=== PATIENT | male | born 1960 | race Hispanic/Latino ===

== ENCOUNTER 2020-06-18 11:20 | Inpatient (IN) | payer OTHER, SELFPAY ==
[~2020-06-18] VITALS: Ht 170.2 cm; Wt 55.5 kg
[2020-06-18 12:15] LABS: BASOPHILS % (AUTO) 0.3 % (0.0-5.0); EOSINOPHILS % (AUTO) 0.3 % (0.0-8.0); HEMATOCRIT 37.7 % (42-54); LYMPHOCYTES % (AUTO) 10.7 % (21.0-51.0); MEAN CORPUSCULAR HEMOGLOBIN 28.8 pg (27.0-33.0); MEAN CORPUSCULAR VOLUME 84.9 fL (79-99); NEUTROPHILS % (AUTO) 78.9 % (40.0-77.0); PLATELET COUNT (AUTO) 407 K/uL (130-400); RED BLOOD CELL COUNT(AUTO) 4.44 MIL/uL (4.50-6.20); RED CELL DISTRIBUTION WIDTH 15.6 % (11.0-15.5); WHITE BLOOD COUNT (AUTO) 11.6 K/uL (4.8-10.8)
[2020-06-18 12:30] LABS: CREATININE 0.9 mg/dL (0.5-1.5); POTASSIUM 3.5 mmol/L (3.5-5.1)
[2020-06-18 12:35] LABS: ALBUMIN 2.7 g/dL (3.5-5.0); BILIRUBIN,TOTAL 1.1 mg/dL (0.2-1.0); TOTAL PROTEIN, SERUM 7.9 g/dL (6.0-8.3)
[2020-06-18] MEDS ORDERED: KETOROLAC TROMETHAMINE 15MG/ML ONE (14:00)
[2020-06-18] MEDS ORDERED: ACETAMINOPHEN EXTRA STRENGTH 500 MG TABLET ONE (14:00)
[2020-06-18] MEDS ORDERED: MORPHINE SULFATE 4 MG/1ML SYG ONE ×2 (14:57→17:50)
[2020-06-18] MEDS ORDERED: ONDANSETRON HCL 4 MG/2 ML VIAL ONE (14:57)
[2020-06-18] MEDS ORDERED: MORPHINE SULFATE 2 MG/ML 1ML SYG IVP PRN (15:30)
[2020-06-18] MEDS ORDERED: ONDANSETRON HCL 4 MG/2 ML VIAL IVP PRN (15:30)
[2020-06-18 15:36] LABS: APPEARANCE,URINE Clear (CLEAR); BILIRUBIN,URINE Small (NEGATIVE); COLOR,URINE Dark Yellow (YELLOW); GLUCOSE, URINE (UA) Negative (NEGATIVE); KETONES,URINE 15 mg/dL (NEGATIVE); LEUKOCYTE ESTERASE ,URINE Trace (NEGATIVE); NITRATE,URINE Negative (NEGATIVE); OCCULT BLOOD,URINE Negative (NEGATIVE); PROTEIN,URINE POS 1+ mg/dL (NEGATIVE)
[2020-06-18] MEDS: SODIUM CHLORIDE 0.9% 1000ML 1,000 ML IV SCH (15:45)
[2020-06-18] MEDS: CEFTRIAXONE SODIUM 1 GM IVP SCH (15:45)
[2020-06-18 15:49] LABS: BACTERIA,URINE Rare /HPF (None Seen); MUCUS,URINE Few LPF (None Seen); RBC,URINE 0-1 /HPF (0-1); SQUAMOUS EPITHELIAL CELL,UR Few /HPF (0-2); WBC,URINE 0-1 /HPF (0-1)
[2020-06-18] MEDS ORDERED: CEFTRIAXONE SODIUM 1 GM ONE (16:27)
[2020-06-18] MEDS: FAMOTIDINE/PF 20 MG/2 ML VIAL IV SCH (21:00)
[2020-06-18] MEDS ORDERED: FAMOTIDINE/PF 20 MG/2 ML VIAL IV ONE (21:03)
[2020-06-18 21:36] VITALS: BP 113/61
[2020-06-18] MEDS: MORPHINE SULFATE 4 MG/1ML SYG IV PRN (23:42)
[2020-06-19] VITALS: BP 117/56
[2020-06-19 04:00] VITALS: BP 121/57
--- NOTE | 2020-06-19 04:17 | NUR ---
PAIN Pt awake,sitting at the edge of the bed,warm packs applied to both legs for c/o of pain.He states Morphine didn't last.
--- NOTE | 2020-06-19 04:22 | NUR ---
SENIOR ACCOUNT REPRESENTATIVE Notified Audrey lynch Client Services Coordinator re pt.s c/o of pain Morphine not due yet.
[2020-06-19] MEDS ORDERED: HYDROMORPHONE HCL 0.5 MG/0.5 ML ML ONE (04:27)
[2020-06-19] MEDS ORDERED: HYDROMORPHONE HCL 0.5 MG/0.5 ML ML IVP ONE (04:30)
[2020-06-19] MEDS: SODIUM CHLORIDE 0.9% 1000ML 1,000 ML IV SCH (05:05)
[2020-06-19 08:07] VITALS: BP 109/58
[2020-06-19] MEDS: FAMOTIDINE/PF 20 MG/2 ML VIAL IV SCH ×2 (08:19→21:09)
[2020-06-19] MEDS: NICOTINE 21 MG/ 24 HR PATCH TD SCH (08:19)
[2020-06-19] MEDS ORDERED: ENOXAPARIN SODIUM 30 MG/0.3 ML SQ SCH (09:00)
[2020-06-19] MEDS: MORPHINE SULFATE 4 MG/1ML SYG IV PRN (10:52)
[2020-06-19] MEDS ORDERED: ACETAMINOPHEN-CODEINE 300/30MG TAB PO SCH (11:12)
--- NOTE | 2020-06-19 11:53 | NUR ---
DYSPHAGIA EVAL COMPLETED. -S/S OF ASPIRATION. RECOMMEND REGULAR TEXTURE, THIN LIQUIDS; PILLS WHOLE WITH LIQUIDS. Addendum: 06/19/20 at 1155 by LINDSEY TAVARES, [facility] Amended: Links added.
[2020-06-19 12:08] VITALS: BP 114/64
--- NOTE | 2020-06-19 12:40 | NUR ---
TRANSFER TO ROOM 422 REPORT GIVEN TO KIERRA OLIVARES , CONSULTS PENDING TO BE CALLED. DR. ARCINIEGA FOR MULTIPLE MASSES AND DR. GEORGES FOR INTRACTABLE BACK PAIN.
[2020-06-19] MEDS: ONDANSETRON HCL 4 MG/2 ML VIAL IVP PRN (13:33)
[2020-06-19] MEDS: GABAPENTIN 100 MG CAPSULE PO SCH ×2 (13:34→21:09)
--- NOTE | 2020-06-19 15:32 | NUR ---
DCP CM spoke to pt discussed dc plans. Pt is independent prior to admission, lives at home with common law of 10 yrs Edith Mosher . Pt has a walker, wheelchair, shoewr chair. Denies any equipments/services. Feels safe to go back home, still drives, common law able to assist with transportation and needs as necessary. Pt is a selfpay, [facility] assisting, given community resources packet. DC plan to home once stable. CM to cont to follow up. Addendum: 06/19/20 at 1537 by TUYET EMANUEL LVN CM Amended: Links added.
[2020-06-19] MEDS: HYDROCODONE/ACETAMINOPHEN 5/325 MG TAB PO PRN ×2 (15:41→17:28)
[2020-06-19 16:36] VITALS: BP 111/64
[2020-06-19 16:57] LABS: BASOPHILS % (AUTO) 0.5 % (0.0-5.0); EOSINOPHILS % (AUTO) 0.4 % (0.0-8.0); HEMATOCRIT 37.3 % (42-54); LYMPHOCYTES % (AUTO) 15.1 % (21.0-51.0); MEAN CORPUSCULAR HGB CONC 33.2 g/dL (32.0-36.0); MEAN CORPUSCULAR VOLUME 87.1 fL (79-99); MONOCYTES % (AUTO) 9.1 % (3.0-13.0); NEUTROPHILS % (AUTO) 73.9 % (40.0-77.0); PLATELET COUNT (AUTO) 426 K/uL (130-400); RED BLOOD CELL COUNT(AUTO) 4.28 MIL/uL (4.50-6.20); RED CELL DISTRIBUTION WIDTH 15.8 % (11.0-15.5); WHITE BLOOD COUNT (AUTO) 12.8 K/uL (4.8-10.8)
[2020-06-19 17:15] LABS: ALBUMIN 2.6 g/dL (3.5-5.0); BILIRUBIN,TOTAL 0.5 mg/dL (0.2-1.0); CREATININE 0.9 mg/dL (0.5-1.5); CRP QUANTITATIVE 133.9 mg/L (0.00-9.0); POTASSIUM 3.7 mmol/L (3.5-5.1); TOTAL PROTEIN, SERUM 7.4 g/dL (6.0-8.3)
[2020-06-19] MEDS: CEFTRIAXONE SODIUM 1 GM IVP SCH (17:26)
[2020-06-19 18:01] LABS: ERYTHROCYTE SEDIMENTATION RATE 81 MM/HR (0-20)
[2020-06-19 19:00] VITALS: BP 119/49
[2020-06-19] MEDS ORDERED: DOCUSATE SODIUM 100 MG CAP PO ONE (20:50)
[2020-06-19] MEDS: SENNOSIDES 8.6 MG TABLET PO SCH (21:08)
[2020-06-19] MEDS: CYCLOBENZAPRINE HCL 10 MG TABLET PO SCH (21:09)
[2020-06-20] VITALS (22 sets, daily range): BP systolic 102–149; BP diastolic 45–97
[2020-06-20 06:34] LABS: BASOPHILS % (AUTO) 0.4 % (0.0-5.0); EOSINOPHILS % (AUTO) 0.3 % (0.0-8.0); HEMATOCRIT 38.5 % (42-54); LYMPHOCYTES % (AUTO) 8.2 % (21.0-51.0); MEAN CORPUSCULAR HEMOGLOBIN 28.7 pg (27.0-33.0); MEAN CORPUSCULAR HGB CONC 32.7 g/dL (32.0-36.0); MEAN CORPUSCULAR VOLUME 87.7 fL (79-99); MONOCYTES % (AUTO) 7.7 % (3.0-13.0); NEUTROPHILS % (AUTO) 82.5 % (40.0-77.0); PLATELET COUNT (AUTO) 333 K/uL (130-400); RED BLOOD CELL COUNT(AUTO) 4.39 MIL/uL (4.50-6.20); RED CELL DISTRIBUTION WIDTH 15.9 % (11.0-15.5); WHITE BLOOD COUNT (AUTO) 11.1 K/uL (4.8-10.8)
[2020-06-20 06:48] LABS: ALBUMIN 2.6 g/dL (3.5-5.0); BILIRUBIN,TOTAL 0.6 mg/dL (0.2-1.0); CREATININE 0.8 mg/dL (0.5-1.5); MAGNESIUM 2.3 mg/dL (1.80-2.40); POTASSIUM 3.9 mmol/L (3.5-5.1); TOTAL PROTEIN, SERUM 7.6 g/dL (6.0-8.3)
[2020-06-20] MEDS: DOCUSATE SODIUM 100 MG CAP PO SCH (09:09)
[2020-06-20] MEDS: SENNOSIDES 8.6 MG TABLET PO SCH ×2 (09:09→20:49)
[2020-06-20] MEDS: CYCLOBENZAPRINE HCL 10 MG TABLET PO SCH ×3 (09:09→20:49)
[2020-06-20] MEDS: NICOTINE 21 MG/ 24 HR PATCH TD SCH (09:09)
[2020-06-20] MEDS: GABAPENTIN 100 MG CAPSULE PO SCH ×3 (09:10→20:50)
[2020-06-20] MEDS: FAMOTIDINE/PF 20 MG/2 ML VIAL IV SCH ×2 (09:10→20:50)
--- NOTE | 2020-06-20 09:21 | NUR ---
THE PT SPOKE WITH DR DOVE REGARGING CT SCAN AND OTHER TESTING. THE PT REFUSED DUE TO INTRACTABLE PAIN AND WANTED TO WAIT. PT IS A/O X4.
--- NOTE | 2020-06-20 10:32 | NUR ---
DR LEBRON REQUESTED IN CONJUCTION WITH DR DOVE TO HAVE ANESTHESIA SPEAK WITH THE PATIENT CONCERNING OPTIONS OF POSSIBLE SEDATION FOR SCHEDULED TESTING PROCEDURES
[2020-06-20] MEDS: ONDANSETRON HCL 4 MG/2 ML VIAL IVP PRN (11:25)
[2020-06-20] MEDS: MORPHINE SULFATE 4 MG/1ML SYG IVP PRN (11:26)
--- NOTE | 2020-06-20 12:01 | NUR ---
ANESTHESIA CAME TO SPEAK WITH PT REGARDING SEDATION FOR CT. CURRENTLY NPO, IVF PATENT. ASSISTED TO BSC WITH MILD DIFFICULTY, PT INSIST ON HELPING HIMSELF DESPITE SEVERE WEAKNESS AND PAIN IN HIS LEGS
[2020-06-20] MEDS ORDERED: METOCLOPRAMIDE 10 MG/2 ML VIAL IVP SCH (12:15)
[2020-06-20] MEDS ORDERED: METOCLOPRAMIDE 10 MG/2 ML VIAL ONE (12:17)
--- NOTE | 2020-06-20 12:55 | NUR ---
DIESEL POWERPLANT MECHANIC HERE FOR ULTRASOUND OF PT LEGS. ASSISTED PT TO BED W/O DIFFICULTY
[2020-06-20] MEDS ORDERED: KETAMINE 50MG/ML SYRINGE 50 MG/ML DISP.SYRIN IV ONE (15:45)
[2020-06-20] MEDS ORDERED: PROPOFOL 10 MG/ML 20ML VIAL IV ONE ×2 (15:45)
--- NOTE | 2020-06-20 15:54 | NUR ---
PT TAKEN BY BED IN GOOD CONDITION WITH S/L IN PLACE. NO CURRENT C/O PAIN OR RESP DIFFICULTY OR DISTRESS, CALM AND PLEASANT, TAKEN TO CT FOR VARIOUS TESTS. PT WILL GO TO RM 325 AFTERWARDS, TESTED NEGATIVE FOR COVID 19, REPORT GIVEN TO EARL.
[2020-06-20] MEDS: CEFTRIAXONE SODIUM 1 GM IVP SCH (17:09)
[2020-06-20] MEDS: ENOXAPARIN SODIUM 40 MG/0.4 ML SYRINGE SQ SCH (20:51)
[2020-06-21] VITALS (7 sets, daily range): BP systolic 103–131; BP diastolic 62–77
[2020-06-21] MEDS: MORPHINE SULFATE 4 MG/1ML SYG IVP PRN ×2 (03:48→12:37)
[2020-06-21 05:04] LABS: BASOPHILS % (AUTO) 0.3 % (0.0-5.0); EOSINOPHILS % (AUTO) 0.5 % (0.0-8.0); LYMPHOCYTES % (AUTO) 8.2 % (21.0-51.0); MEAN CORPUSCULAR HEMOGLOBIN 29.2 pg (27.0-33.0); MONOCYTES % (AUTO) 8.6 % (3.0-13.0); NEUTROPHILS % (AUTO) 80.9 % (40.0-77.0); PLATELET COUNT (AUTO) 381 K/uL (130-400); RED BLOOD CELL COUNT(AUTO) 4.07 MIL/uL (4.50-6.20); RED CELL DISTRIBUTION WIDTH 15.6 % (11.0-15.5); WHITE BLOOD COUNT (AUTO) 11.7 K/uL (4.8-10.8)
[2020-06-21 05:34] LABS: CREATININE 0.9 mg/dL (0.5-1.5); POTASSIUM 3.4 mmol/L (3.5-5.1)
[2020-06-21] MEDS: ENOXAPARIN SODIUM 40 MG/0.4 ML SYRINGE SQ SCH (09:41)
[2020-06-21] MEDS: CYCLOBENZAPRINE HCL 10 MG TABLET PO SCH ×3 (09:41→21:32)
[2020-06-21] MEDS: FAMOTIDINE/PF 20 MG/2 ML VIAL IV SCH ×2 (09:41→21:31)
[2020-06-21] MEDS: DOCUSATE SODIUM 100 MG CAP PO SCH (09:41)
[2020-06-21] MEDS: GABAPENTIN 100 MG CAPSULE PO SCH ×3 (09:41→21:32)
[2020-06-21] MEDS: SENNOSIDES 8.6 MG TABLET PO SCH ×3 (09:41→21:31)
[2020-06-21] MEDS: DEXAMETHASONE SOD PHOSPHATE 4 MG/ML 1ML VIAL IVP SCH ×3 (09:52→21:31)
[2020-06-21] MEDS: NICOTINE 21 MG/ 24 HR PATCH TD SCH (09:54)
[2020-06-21] MEDS: CEFTRIAXONE SODIUM 1 GM IVP SCH (16:47)
--- NOTE | 2020-06-21 16:57 | NUR ---
DR MUSA ROUNDED WITH PATIENT. HE EXPLAINED PT HIS PROGNOSIS AND THE NEED FOR A LUNG BIOPSY. PATIENT DENIES ANY FURTHER TREATMENT. HE STATED " I DONT WANT ANY RADIATION OR CHEMOTHERAPY". PATIENT IS CURRENTLY ON THE PHONE WITH HIS . PENDING TO DECIDE IF HE WANT'S THE LUNG BIOPSY OR NOT/.
--- NOTE | 2020-06-21 19:36 | NUR ---
PATIENT STILL DECIDING IF HE WANTS THE BIOPSY OR NOT. WILL MAKE A FINAL DECISION BY TOMORROW MORNING.
[2020-06-21] MEDS: FENTANYL 25 MCG/HR PATCH TD SCH (21:31)
[2020-06-22] MEDS: MORPHINE SULFATE 4 MG/1ML SYG IV PRN (03:09)
[2020-06-22] MEDS: DEXAMETHASONE SOD PHOSPHATE 4 MG/ML 1ML VIAL IVP SCH ×4 (03:09→21:21)
[2020-06-22 03:13] VITALS: BP 111/51
[2020-06-22 05:38] LABS: BASOPHILS % (AUTO) 0.1 % (0.0-5.0); HEMATOCRIT 34.8 % (42-54); LYMPHOCYTES % (AUTO) 5.2 % (21.0-51.0); MEAN CORPUSCULAR HEMOGLOBIN 28.7 pg (27.0-33.0); MEAN CORPUSCULAR HGB CONC 33.6 g/dL (32.0-36.0); MEAN CORPUSCULAR VOLUME 85.5 fL (79-99); MONOCYTES % (AUTO) 4.5 % (3.0-13.0); NEUTROPHILS % (AUTO) 89.3 % (40.0-77.0); PLATELET COUNT (AUTO) 341 K/uL (130-400); RED BLOOD CELL COUNT(AUTO) 4.07 MIL/uL (4.50-6.20); RED CELL DISTRIBUTION WIDTH 15.5 % (11.0-15.5); WHITE BLOOD COUNT (AUTO) 11.7 K/uL (4.8-10.8)
[2020-06-22 05:56] LABS: CREATININE 0.8 mg/dL (0.5-1.5); POTASSIUM 4.3 mmol/L (3.5-5.1)
[2020-06-22 08:00] VITALS: BP 116/63
[2020-06-22] MEDS: DOCUSATE SODIUM 100 MG CAP PO SCH (09:00)
[2020-06-22] MEDS: GABAPENTIN 100 MG CAPSULE PO SCH ×3 (10:27→21:23)
[2020-06-22] MEDS: CYCLOBENZAPRINE HCL 10 MG TABLET PO SCH ×3 (10:27→21:22)
[2020-06-22] MEDS: SENNOSIDES 8.6 MG TABLET PO SCH ×2 (10:28→21:21)
[2020-06-22] MEDS: NICOTINE 21 MG/ 24 HR PATCH TD SCH (10:31)
[2020-06-22] MEDS: ENOXAPARIN SODIUM 40 MG/0.4 ML SYRINGE SQ SCH (10:33)
[2020-06-22] MEDS: FAMOTIDINE/PF 20 MG/2 ML VIAL IV SCH ×2 (10:34→21:21)
[2020-06-22 12:00] VITALS: BP 116/74
--- NOTE | 2020-06-22 12:15 | NUR ---
Referral from KIERRA Gilliamprecision lens technician SW met with pt. who is sitting on the side of bed, is calm, pleasant and cooperative. Pt. reports that he has been informed of his condition and that he has knowledge of hospice/palliative care. Pt. reports that he is supported by his girlfriend Edith Mosher whom he resides with and reports as a strong support system. Pt. also reports that his relatives are supportive of him as well. Relatives provide transportation. Pt. is self employed and reports 200/week income and reports that [employer] has visited for assistance. All utilities reportedly connected in the home, pt. has a walker, wheelchair and shower chair. Pt. denies use of illicit substances; denies any thoughts of self harm or harm to others. Pt. verbalized that at this time he was not ready to make a decision regarding hospice/palliative care and requested that this worker revisit tomorrow. Pt. informed that he would be referred to CM as SW not available on weekends; pt. verbalized an understanding. Pt. verbalized no SS needs or concerns at this time. KIERRA Gilliam and JAMES made aware. Addendum: 06/22/20 at 1731 by GEE CAMPBELL Amended: Links added.
[2020-06-22] MEDS: CEFTRIAXONE SODIUM 1 GM IVP SCH (14:46)
[2020-06-22 16:00] VITALS: BP 106/69
[2020-06-22 21:11] VITALS: BP 107/79
[2020-06-22] MEDS: LEVETIRACETAM 500 MG TABLET PO SCH (21:22)
[2020-06-22] MEDS: SODIUM CHLORIDE 0.9% 1000ML 1,000 ML IV SCH (21:30)
--- NOTE | 2020-06-22 23:00 | NUR ---
PT CONFUSED AND TRIED TO GET OUT OF BED. ASSISTED BACK IN BED. BED ALARM ON.
[2020-06-22] MEDS: HYDROCODONE/ACETAMINOPHEN 5/325 MG TAB PO PRN (23:11)
[2020-06-23 00:27] VITALS: BP 118/63
[2020-06-23] MEDS: DEXAMETHASONE SOD PHOSPHATE 4 MG/ML 1ML VIAL IVP SCH ×4 (03:00→19:51)
[2020-06-23 03:31] VITALS: BP 117/60
[2020-06-23 08:00] VITALS: BP 114/62
[2020-06-23] MEDS: SENNOSIDES 8.6 MG TABLET PO SCH ×2 (09:00→21:00)
[2020-06-23] MEDS: DOCUSATE SODIUM 100 MG CAP PO SCH (09:00)
[2020-06-23] MEDS: LEVETIRACETAM 500 MG TABLET PO SCH ×2 (10:47→19:50)
[2020-06-23] MEDS: CYCLOBENZAPRINE HCL 10 MG TABLET PO SCH ×3 (10:47→19:51)
[2020-06-23] MEDS: GABAPENTIN 100 MG CAPSULE PO SCH ×3 (10:47→19:51)
[2020-06-23] MEDS: NICOTINE 21 MG/ 24 HR PATCH TD SCH (10:48)
[2020-06-23] MEDS: FAMOTIDINE/PF 20 MG/2 ML VIAL IV SCH ×2 (10:49→19:51)
[2020-06-23] MEDS: ENOXAPARIN SODIUM 40 MG/0.4 ML SYRINGE SQ SCH (10:51)
[2020-06-23 12:00] VITALS: BP 101/63
[2020-06-23 16:00] VITALS: BP 108/58
[2020-06-23] MEDS: CEFTRIAXONE SODIUM 1 GM IVP SCH (16:11)
--- NOTE | 2020-06-23 16:53 | NUR ---
As per primary nurse's report, pt has decided to go ahead with lung biopsy as recommended by Dr. Marley. Fadi placed to Dr. Marley's phone to notify, but no answer. Message left requesting call back.
[2020-06-23 20:20] VITALS: BP 108/65
[2020-06-24 00:33] VITALS: BP 101/62
[2020-06-24] MEDS: DEXAMETHASONE SOD PHOSPHATE 4 MG/ML 1ML VIAL IVP SCH ×4 (03:03→20:57)
[2020-06-24] MEDS: MORPHINE SULFATE 4 MG/1ML SYG IV PRN (03:22)
[2020-06-24] MEDS: SODIUM CHLORIDE 0.9% 1000ML 1,000 ML IV SCH ×3 (03:22→20:54)
[2020-06-24 04:20] VITALS: BP 102/50
[2020-06-24 08:00] VITALS: BP 111/46
[2020-06-24] MEDS: SENNOSIDES 8.6 MG TABLET PO SCH ×2 (09:00→20:54)
[2020-06-24] MEDS: DOCUSATE SODIUM 100 MG CAP PO SCH (09:00)
[2020-06-24] MEDS: ENOXAPARIN SODIUM 40 MG/0.4 ML SYRINGE SQ SCH (09:00)
[2020-06-24] MEDS: FAMOTIDINE/PF 20 MG/2 ML VIAL IV SCH ×2 (10:11→20:54)
[2020-06-24] MEDS: NICOTINE 21 MG/ 24 HR PATCH TD SCH (10:11)
[2020-06-24] MEDS: GABAPENTIN 100 MG CAPSULE PO SCH ×3 (10:12→20:54)
[2020-06-24] MEDS: LEVETIRACETAM 500 MG TABLET PO SCH ×2 (10:12→20:54)
[2020-06-24] MEDS: CYCLOBENZAPRINE HCL 10 MG TABLET PO SCH ×3 (10:12→20:53)
[2020-06-24] MEDS ORDERED: PANTOPRAZOLE SODIUM 40 MG TABLET.DR PO SCH (10:30)
[2020-06-24 12:09] VITALS: BP 111/69
--- NOTE | 2020-06-24 14:03 | NUR ---
REFUSED PALLIATIVE/HOSPICE SW spoke with patient regarding decision to continue with palliative/hospice care or aggressive treatment. Patient stated that he was not wanting palliative/hospice at this time. Madeline RAMIREZ, made aware.
[2020-06-24 16:00] VITALS: BP 113/64
[2020-06-24] MEDS: CEFTRIAXONE SODIUM 1 GM IVP SCH (17:33)
[2020-06-24 20:27] VITALS: BP 118/61
[2020-06-24] MEDS: FENTANYL 25 MCG/HR PATCH TD SCH (20:55)
--- NOTE | 2020-06-24 20:55 | NUR ---
MEDS SHIFT ASSESSMENT DONE, PLEASE REFER TO CHART. DUE MEDS ADMINISTERED, TOLERATED WELL. CONSENT FOR LUNG BIOPSY SIGNED BY PT, WITNESSED BY RESEARCH AND DEVELOPMENT MANAGER. KEPT RESTED AND COMFORTABLE IN BED. CALL LIGHT WITHIN REACH. WILL MONITOR PT. Addendum: 06/24/20 at 2317 by RANDA CH RN RN Amended: Links added.
[2020-06-25] VITALS (7 sets, daily range): BP systolic 97–112; BP diastolic 41–58
--- NOTE | 2020-06-25 01:40 | NUR ---
ROUNDS PT IS RESTING WELL, FAIRLY ASLEEP. NO DISTRESS NOTED. KEPT UNDISTURBED FOR NOW. KEPT NPO FOR BX TODAY. WILL CONTINUE TO MONITOR.
[2020-06-25] MEDS: DEXAMETHASONE SOD PHOSPHATE 4 MG/ML 1ML VIAL IVP SCH ×4 (02:24→20:26)
[2020-06-25] MEDS: HYDROCODONE/ACETAMINOPHEN 5/325 MG TAB PO PRN ×2 (03:28→20:27)
--- NOTE | 2020-06-25 04:41 | NUR ---
BATHE PCP IN AND GAVE PT A BED BATH IN BED. TOLERATED ACTIVITY WELL. CANS VACUUM TESTER IN TO DRAW BLOOD. KEPT NPO FOR PROCEDURE. FOR MORE CARE.
[2020-06-25 06:32] LABS: BASOPHILS % (AUTO) 0.2 % (0.0-5.0); HEMATOCRIT 37.9 % (42-54); LYMPHOCYTES % (AUTO) 6.4 % (21.0-51.0); MEAN CORPUSCULAR HEMOGLOBIN 28.7 pg (27.0-33.0); MEAN CORPUSCULAR VOLUME 86.9 fL (79-99); MONOCYTES % (AUTO) 8.7 % (3.0-13.0); NEUTROPHILS % (AUTO) 83.3 % (40.0-77.0); PLATELET COUNT (AUTO) 294 K/uL (130-400); RED BLOOD CELL COUNT(AUTO) 4.36 MIL/uL (4.50-6.20); RED CELL DISTRIBUTION WIDTH 15.5 % (11.0-15.5); WHITE BLOOD COUNT (AUTO) 11.9 K/uL (4.8-10.8)
[2020-06-25 06:38] LABS: CREATININE 0.8 mg/dL (0.5-1.5); MAGNESIUM 1.9 mg/dL (1.80-2.40)
[2020-06-25 07:47] LABS: INR 0.99 (0.85-1.15); PROTHROMBIN TIME 10.7 SEC (9.6-11.6)
[2020-06-25] MEDS: NICOTINE 21 MG/ 24 HR PATCH TD SCH (08:34)
[2020-06-25] MEDS: MORPHINE SULFATE 4 MG/1ML SYG IV PRN ×2 (08:35→14:37)
[2020-06-25] MEDS: SENNOSIDES 8.6 MG TABLET PO SCH ×2 (08:43→20:26)
[2020-06-25] MEDS: CYCLOBENZAPRINE HCL 10 MG TABLET PO SCH ×3 (08:43→20:26)
[2020-06-25] MEDS: GABAPENTIN 100 MG CAPSULE PO SCH ×3 (08:43→20:25)
[2020-06-25] MEDS: DOCUSATE SODIUM 100 MG CAP PO SCH (08:43)
[2020-06-25] MEDS: ENOXAPARIN SODIUM 40 MG/0.4 ML SYRINGE SQ SCH (08:44)
[2020-06-25] MEDS: LEVETIRACETAM 500 MG TABLET PO SCH ×2 (09:00→20:26)
--- NOTE | 2020-06-25 09:03 | NUR ---
RE: CT RT LUNG BIOPSY DR Yin JUNIOR NOTIFIED OF PROCEDURE AND REVIEWED IMAGES. PATIENT HIGH RISK FOR COMPLICATIONS WITH PERCUTANEOUS BY IR ORDERS GIVEN TOCANCEL BIOPSY BY IR AND RECOMMEND ENDOSCOPIC BIOPSY OF RT LUNG. Ab NG RN NOTIFIED OF PROCEDURE OUTCOME.
[2020-06-25] MEDS: FAMOTIDINE/PF 20 MG/2 ML VIAL IV SCH ×2 (09:19→20:26)
[2020-06-25] MEDS: SODIUM CHLORIDE 0.9% 1000ML 1,000 ML IV SCH (14:26)
[2020-06-25] MEDS: CEFTRIAXONE SODIUM 1 GM IVP SCH (15:41)
--- NOTE | 2020-06-25 17:30 | NUR ---
Discharge disposition- reconsider hospice? Chart and notes reviewed, CM noted order to discuss palliative care- CM noted documentation by SW on the weekend stating patent refused. This moring spoke to Dr. Strange - stated patient wants biopsy for definite diagnosis CM discussed w Dr. Kwok, who stated just spoke to patient , patient is refusing endoscopic biopsy. chemo, surgery, or radiation. States therefore patient is hospice candidate only. CM advised Dr. Kwok CM/SW can re-address Hospice/ palliative care disposition again in am. Addendum: 06/26/20 at 0822 by LAKISHA LOZADA RN CM Amended: Links added.
--- NOTE | 2020-06-25 20:26 | NUR ---
MEDS SHIFT ASSESSMENT DONE, PLEASE REFER TO CHART. PT CLAIMS OF CONSTANTLY IN PAIN FROM HIS BACK TO HIS LEGS. DUE MEDS ADMINISTERED, NORCO PO GIVEN FOR PAINS. POSITIONED COMFORTABLY IN BED, AT THIS TIME, PT PREFERS SITTING ON THE SIDE OF THE BED. CALL LIGHT WITHIN REACH. WILL RE-ASSESS PT. Addendum: 06/25/20 at 2155 by RANDA CH RN RN Amended: Links added.
[2020-06-26] MEDS: DEXAMETHASONE SOD PHOSPHATE 4 MG/ML 1ML VIAL IVP SCH ×4 (01:59→20:49)
--- NOTE | 2020-06-26 02:00 | NUR ---
ROUNDS PT FAIRLY ASLEEP. NO DISTRESS NOTED. KEPT UNDISTURBED FOR NOW. CALL LIGHT WITHIN REACH. WILL MONITOR PT.
--- NOTE | 2020-06-26 02:45 | NUR ---
PAIN PT SEEN SITTING ON THE SIDE OF THE BED. CLAIMS OF BACK/LEG PAINS. MEDICATED WITH MORPHINE IV. PT VERBALIZES THAT HE FEELS LESS PAIN SITTING DOWN ON THE SIDE OF THE BED WITH HIS LEGS DOWN ON THE FLOOR.
[2020-06-26] MEDS: MORPHINE SULFATE 4 MG/1ML SYG IV PRN ×2 (02:47→09:05)
[2020-06-26 03:25] VITALS: BP 108/75
[2020-06-26] MEDS: HYDROCODONE/ACETAMINOPHEN 5/325 MG TAB PO PRN ×2 (04:24→20:03)
[2020-06-26] MEDS: SODIUM CHLORIDE 0.9% 1000ML 1,000 ML IV SCH ×2 (04:24→20:02)
--- NOTE | 2020-06-26 04:24 | NUR ---
PAIN PT RESTING IN BED BUT STILL CLAIMS OF GENERALIZED PAINS, MOSTLY IN THE LOWER EXTREMITIES. MEDICATED WITH VICODIN PO. KEPT COMFORTABLE. WILL RE-ASSESS PT.
[2020-06-26 08:27] VITALS: BP 124/59
[2020-06-26] MEDS: FAMOTIDINE/PF 20 MG/2 ML VIAL IV SCH ×2 (09:02→20:03)
[2020-06-26] MEDS: GABAPENTIN 100 MG CAPSULE PO SCH ×3 (09:02→20:05)
[2020-06-26] MEDS: DOCUSATE SODIUM 100 MG CAP PO SCH (09:02)
[2020-06-26] MEDS: LEVETIRACETAM 500 MG TABLET PO SCH ×2 (09:03→20:03)
[2020-06-26] MEDS: SENNOSIDES 8.6 MG TABLET PO SCH ×3 (09:03→20:13)
[2020-06-26] MEDS: ENOXAPARIN SODIUM 40 MG/0.4 ML SYRINGE SQ SCH (09:03)
[2020-06-26] MEDS: CYCLOBENZAPRINE HCL 10 MG TABLET PO SCH ×3 (09:03→20:05)
[2020-06-26] MEDS: NICOTINE 21 MG/ 24 HR PATCH TD SCH (09:04)
[2020-06-26 11:24] VITALS: BP 105/57
[2020-06-26] MEDS: CEFTRIAXONE SODIUM 1 GM IVP SCH (16:14)
[2020-06-26 17:07] VITALS: BP 109/56
[2020-06-26 20:00] VITALS: BP 139/61
--- NOTE | 2020-06-26 20:05 | NUR ---
MEDS SHIFT ASSESSMENT DONE, PLEASE REFER TO CHART. CLAIMS OF GENERALIZED PAINS. DUE MEDS ADMINISTERED, NORCO GIVEN FOR PAIN. KEPT RESTED AND COMFORTABLE. CALL LIGHT WITHIN REACH. WILL RE-ASSESS PT. Addendum: 06/26/20 at 2157 by RANDA CH RN RN Amended: Links added.
[2020-06-27] VITALS: BP 128/60
--- NOTE | 2020-06-27 00:15 | NUR ---
PAIN PT CLAIMS OF GENERALIZED PAINS. MEDICATED WITH MORPHINE IV. KEPT NPO FROM NOW. WILL RE-ASSESS PT. Addendum: 06/27/20 at 0109 by RANDA CH RN RN Amended: Links added.
[2020-06-27] MEDS: MAG HYDROX/AL HYDROX/SIMETH ES 30 ML SUSP UDCUP PO PRN (00:16)
[2020-06-27] MEDS: MORPHINE SULFATE 4 MG/1ML SYG IV PRN ×3 (00:17→23:35)
--- NOTE | 2020-06-27 02:00 | NUR ---
ROUNDS PT RESTING WELL, FAIRLY ASLEEP. NO DISTRESS NOTED. KEPT UNDISTURBED FOR NOW. WILL CONTINUE TO MONITOR.
[2020-06-27] MEDS: DEXAMETHASONE SOD PHOSPHATE 4 MG/ML 1ML VIAL IVP SCH ×4 (02:29→20:08)
[2020-06-27 04:00] VITALS: BP 110/58
--- NOTE | 2020-06-27 04:40 | NUR ---
CONSENT PT ALREADY AWAKE. CONSENT FOR LIVER BIOPSY SIGNED BY PT AND WITNESSED BY MANAGING ATTORNEY. INFORMED PT THAT HE WILL BE GIVEN A BED BATH. PCP IN TO ASSIST PT. PT CRIES OF GENERALIZED PAINS MOSTLY ON HIS HIPS WHEN BEING MOVED. MEDICATED WITH MORPHINE IV. BATH FINISHED AND RE-POSITIONED COMFORTABLY IN BED. KEPT NPO FOR PROCEDURE. FOR MORE CARE.
[2020-06-27 08:00] VITALS: BP 106/62
[2020-06-27] MEDS: DOCUSATE SODIUM 100 MG CAP PO SCH (09:00)
[2020-06-27] MEDS: LEVETIRACETAM 500 MG TABLET PO SCH ×2 (09:00→20:08)
[2020-06-27] MEDS: GABAPENTIN 100 MG CAPSULE PO SCH ×3 (09:00→20:09)
[2020-06-27] MEDS: ENOXAPARIN SODIUM 40 MG/0.4 ML SYRINGE SQ SCH (09:00)
[2020-06-27] MEDS: CYCLOBENZAPRINE HCL 10 MG TABLET PO SCH ×3 (09:00→20:09)
[2020-06-27] MEDS: SENNOSIDES 8.6 MG TABLET PO SCH ×2 (09:00→20:09)
[2020-06-27] MEDS: FAMOTIDINE/PF 20 MG/2 ML VIAL IV SCH ×2 (09:59→20:08)
[2020-06-27] MEDS: NICOTINE 21 MG/ 24 HR PATCH TD SCH (10:01)
[2020-06-27 12:02] VITALS: BP 103/63
--- NOTE | 2020-06-27 12:35 | NUR ---
RDSCREEN - LOS X 9 Pt admitted with intractable lower back pain. Cord compression. Current smoker. Pt is NPO pending Liver mass Biopsy. BMI 19.2, Mild to moderate muscle/fat loss, moderate 3+ pitting edema. Fair PO intake with previous regular diet order. I/O 710/300mL Recommend resume diet order when medically feasible Recommend 60mL ProMod QD Recommend Ensure QD Recommend 1500mL Fluid restriction RD to continue to monitor. Please notify as additional nutrition concerns arise. Thank you. Addendum: 06/27/20 at [address] Amended: Links added.
[2020-06-27] MEDS ORDERED: FENTANYL CITRATE PF 50 MCG/1 ML 2ML VIAL ONE (14:21)
[2020-06-27] MEDS ORDERED: MIDAZOLAM HCL 1 MG/ML 2ML VIAL ONE (14:22)
--- NOTE | 2020-06-27 14:27 | NUR ---
MEDS TIMES 1427 VERSED 1MG IV PUSH GIVEN FOR LIVER BX FENTANYL 25MCG IV PUSH TIMES 1430 VERSED 1MG IV PUSH GIVEN FOR LIVER BX FENTANLY 25MCG IV PUSH GIVEN
--- NOTE | 2020-06-27 14:36 | NUR ---
RE: LIVER BIOPSY PATIENT COULD NOT TOLERATE POSITIONING FOR LIVER BIOPSY. PROCEDURE CANCELED. DR Yin GOLD RECOMMENDS PROCEDURE WITH ANESTHESIA. REPORT GIVE TO Alexandr PINTO LVN. PATIENT TRANSPORTED TO [facility] VIA BED AT 1440.
--- NOTE | 2020-06-27 15:30 | NUR ---
SW revisited pt. to discuss hospice care. Again, pt. verbalized an understanding to hospice care, stating that his mother was under hospice care at end of life, however, he was unsatisfied with care provided to his mother by hospice team. SW spoke at length with pt. about reputable hospice agencies throughout the [facility], the support provided for pt's and their families, and the importance of quality of life at end of life. SW informed pt. of referral process; questions answered and pt. stated that he would think about the option of hospice referral tonight. SW to revisit tomorrow. CM and Krishna made aware.
[2020-06-27 16:00] VITALS: BP 125/72
--- NOTE | 2020-06-27 16:15 | NUR ---
DR MUSA ROUNDED AND TALKED TO PT ABOUT LIVER BX AND HOSPICE CARE. DR MUSA ATTEMPTED TO CALL DR LOCKWOOD TO SEE THIS PT FOR PALLIATIVE CARE. DR LOCKWOOD DID NOT ANSWER PER DR MUSA HE WOULD TXT DR LOCKWOOD TO MAKE HIM AWARE. PT CONTINUES TO BE UNDECIDED OF WHAT HE WANTS DONE. DR WAGNER ALSO TALKED WITH PT AT THIS TIME.
[2020-06-27] MEDS: CEFTRIAXONE SODIUM 1 GM IVP SCH (18:46)
[2020-06-27] MEDS: SODIUM CHLORIDE 0.9% 1000ML 1,000 ML IV SCH (19:09)
[2020-06-27] MEDS: FENTANYL 25 MCG/HR PATCH TD SCH (20:11)
[2020-06-27 20:12] VITALS: BP 112/71
--- NOTE | 2020-06-27 20:28 | NUR ---
patient refuses to sign the consent for liver mass biopsy. warehouse incentive selector, willian, notified and aware. patient says he will speak with his and doctor tomorrow about it.
[2020-06-27] MEDS: HYDROCODONE/ACETAMINOPHEN 5/325 MG TAB PO PRN (22:20)
[2020-06-28 00:16] VITALS: BP 116/62
[2020-06-28] MEDS: DEXAMETHASONE SOD PHOSPHATE 4 MG/ML 1ML VIAL IVP SCH ×3 (01:16→16:01)
[2020-06-28 04:16] VITALS: BP 121/64
[2020-06-28] MEDS: MORPHINE SULFATE 4 MG/1ML SYG IV PRN ×3 (04:51→10:20)
[2020-06-28 08:00] VITALS: BP 114/54
[2020-06-28] MEDS: DOCUSATE SODIUM 100 MG CAP PO SCH (09:00)
--- NOTE | 2020-06-28 09:00 | NUR ---
SW revisited pt. to discuss hospice. Pt. awake and alert, informs this worker that he has given the option of home hospice some thought and has decided to do so. However, pt. requesting that his sister be allowed visit so that SW could speak to pt. with sister present. KIERRA Castillo and Dr. Axel Quick, informed of reques and current status of making hospice decision. Per KIERRA Castillo, House Sup. has granted permission. THis worker informed pt. that sister Taryn has been granted permission to visit. Pt. requested this worker return at 1000 with the hopes that sister will be visiting. Pt. is able to verbalize understanding to hospice, stating it is medical care at home by medical team as he does not want any further interventions, nor to return to hospital. SW reiterated that hospice team assists with DME, meds, and support for him and caregiver; pt. voiced an understanding. Pt. also stated that he understands that a family member must be able to assist with his care at home otherwise the option of comfort/hospice home. Pt. declined hospice home, stating that if his common law is unable to care for him, his options are his sister or niece. SW reiterated that once he is able to provide his choice/s for hospice agencies, that it is a process for acceptance and may take a couple of days; pt. verbalized an understanding. Krishna and JAMES Waterman made aware.
[2020-06-28] MEDS: SENNOSIDES 8.6 MG TABLET PO SCH ×2 (09:58→20:19)
[2020-06-28] MEDS: CYCLOBENZAPRINE HCL 10 MG TABLET PO SCH ×3 (09:58→20:20)
[2020-06-28] MEDS: GABAPENTIN 100 MG CAPSULE PO SCH ×3 (09:59→20:20)
[2020-06-28] MEDS: SODIUM CHLORIDE 0.9% 1000ML 1,000 ML IV SCH (10:00)
[2020-06-28] MEDS: LEVETIRACETAM 500 MG TABLET PO SCH ×2 (10:00→20:20)
[2020-06-28] MEDS: FAMOTIDINE/PF 20 MG/2 ML VIAL IV SCH (10:00)
[2020-06-28] MEDS: NICOTINE 21 MG/ 24 HR PATCH TD SCH (10:00)
[2020-06-28] MEDS: ENOXAPARIN SODIUM 40 MG/0.4 ML SYRINGE SQ SCH (10:01)
--- NOTE | 2020-06-28 10:40 | NUR ---
SW revisted pt., pt's Sister Taryn veras. SW provided information on home hospice care; pt's sister verbalized an understanding and stated that she discussed hospice plans with pt., pt's common law spouse and family members. Pt's sister reported that all family is supportive of pt. receiving hospice care at home as they understand that he does not want aggressive or curative treatment. Pt. and sister informed this worker that a hospice agency phoned pt. prior to this worker's visit and told him that they would provide assistance once he is home. Pt. and sister unable to recall name of agency or person that phoned. SW made inquiries to nursing staff, CM and physicians, all of which reported not having made a referral. MORENO explained referral process to pt. and his Sister; consent signed allowing SW to refer pt. to numerous agencies as he is non funded, this worker to request dariana services; both verbalized an understanding. MORENO informed Dr. Axel Hill, DoKemal and CM that pt. is in agreement with hospice. MORENO will begin hospice referral process for pt.
[2020-06-28 12:00] VITALS: BP 97/67
--- NOTE | 2020-06-28 12:08 | NUR ---
RD UPDATE Pt refusal to sign Liver Biopsy consent. Currently pending hospice. Regular diet order resumed. Recommend Ensure QD, 60mL ProMod QD. RD to continue to monitor.
--- NOTE | 2020-06-28 13:15 | NUR ---
MORENO contacted [facility]rei and inquired about accepting non funded pt's. Andrei requested referral be sent and he would discuss/review with Lead Manufacturing Technician. Referral faxed.
[2020-06-28] MEDS: PANTOPRAZOLE SODIUM 40 MG TABLET.DR PO SCH (13:20)
[2020-06-28] MEDS: MORPHINE SULFATE 15 MG TABLET.SA PO SCH (13:20)
[2020-06-28] MEDS: METOCLOPRAMIDE 10 MG TABLET PO SCH ×2 (13:20→18:10)
--- NOTE | 2020-06-28 15:00 | NUR ---
MORENO contacted [facility] for referral of nonfunded pt. Spoke with Sierra who requested packet be faxed and would be reviewed by Boilermaker Helper. Referral faxed to Sierra.
[2020-06-28 16:00] VITALS: BP 109/56
--- NOTE | 2020-06-28 16:00 | NUR ---
SW contacted [facility] again who reported referral was still pending with Administration.
[2020-06-28 20:16] VITALS: BP 181/61
[2020-06-28] MEDS: MAG HYDROX/AL HYDROX/SIMETH ES 30 ML SUSP UDCUP PO PRN (20:20)
[2020-06-28] MEDS ORDERED: TRAZODONE HCL 50 MG TAB PO SCH (21:15)
[2020-06-29 00:20] VITALS: BP 118/64
[2020-06-29] MEDS: MORPHINE SULFATE 15 MG TABLET.SA PO SCH ×2 (01:07→10:49)
[2020-06-29] MEDS: HYDROCODONE/ACETAMINOPHEN 5/325 MG TAB PO PRN (02:44)
[2020-06-29 04:20] VITALS: BP 103/59
[2020-06-29] MEDS ORDERED: MORPHINE SULFATE 2 MG/ML 1ML SYG IVP PRN (07:00)
[2020-06-29] MEDS ORDERED: MORPHINE SULFATE 2 MG/ML 1ML SYG ONE (07:03)
--- NOTE | 2020-06-29 08:10 | NUR ---
SW contacted Emelia/[facility] for dariana/nonfunded hospice pt.; referral faxed and per Emelia, will have Administration review.
[2020-06-29 08:29] VITALS: BP 107/68
[2020-06-29] MEDS: DOCUSATE SODIUM 100 MG CAP PO SCH (09:26)
[2020-06-29] MEDS: GABAPENTIN 100 MG CAPSULE PO SCH ×2 (09:26→14:12)
[2020-06-29] MEDS: LEVETIRACETAM 500 MG TABLET PO SCH (09:26)
[2020-06-29] MEDS: METOCLOPRAMIDE 10 MG TABLET PO SCH ×3 (09:26→16:49)
[2020-06-29] MEDS: PANTOPRAZOLE SODIUM 40 MG TABLET.DR PO SCH (09:27)
[2020-06-29] MEDS: SENNOSIDES 8.6 MG TABLET PO SCH (09:27)
[2020-06-29] MEDS: NICOTINE 21 MG/ 24 HR PATCH TD SCH (09:27)
[2020-06-29] MEDS: CYCLOBENZAPRINE HCL 10 MG TABLET PO SCH ×3 (09:27→16:49)
--- NOTE | 2020-06-29 10:45 | NUR ---
[facility] contacted this worker, stated that he will contact pt's Sister, then notify me if pt. is accepted under their services.
[2020-06-29 12:00] VITALS: BP 96/59
[2020-06-29] MEDS: MAG HYDROX/AL HYDROX/SIMETH ES 30 ML SUSP UDCUP PO PRN (12:24)
--- NOTE | 2020-06-29 12:30 | NUR ---
OOHDNR-MORENO met with pt. and discussed OOHDNR again; pt. verbalized an understanding and in agreement to sign. Security dept contacted for witnessing; document signed and placed in chart.
--- NOTE | 2020-06-29 13:06 | NUR ---
SW contacted Kassandra/[facility] re-status of acceptance; per Andrei, he is still at meeting with pt's Sister/family and will f/u with SW once decision is made.
--- NOTE | 2020-06-29 14:30 | NUR ---
Andrei/[facility], informed this worker that pt. is accepted. DME ordered and to be delivered later this afternoon. Dr. Maranda Quick and CM made aware.
[2020-06-29 16:00] VITALS: BP 102/55
--- NOTE | 2020-06-29 16:18 | NUR ---
CM NOTE/[facility] REQUEST MADE FOR EMS TRANSFER. PATIENT IS UNINSURED AND HAS WEAKNESS TO LOWER EXTREMITIES. EMS TO BE COVERED BY [facility] [place], APPROVED BY DONAL MALLOY RN, CM DIRECTOR. [facility] FORMS FAXED TO [facility], CONFIRMED RECEIVED BY FAX RECEIPT. PATIENT TO GO HOME WITH [facility], PENDING DME DELIVERY.
--- NOTE | 2020-06-29 16:35 | NUR ---
pt prepared for discharge with hospice care ([facility]). Report given to Madina Duron RN.
--- NOTE | 2020-06-29 20:00 | NUR ---
EMS HERE TO TRANSFER PATIENT HOME. PATIENT AWAKE AND ALERT, NO ACUTE DISTRESS NOTED. REMOVED 20GA PIV TO RIGHT FOREARM.
== END 2020-06-29 20:00 | DRG 181 ==
LOC: EDH 11:20 → EDHIP 15:49 → 3DH 20:53 → 4DH 06-19 13:56 → 3DH 06-20 17:07
PROVIDERS: ADMIT Family Medicine; ATTEND Family Medicine
DX: C34.90 Malignant neoplasm of unspecified part of unspecified bronchus or lung (principal); N39.0 Urinary tract infection, site not specified; E87.1 Hypo-osmolality and hyponatremia; E44.0 Moderate protein-calorie malnutrition; G95.20 Unspecified cord compression; Z68.1 Body mass index [BMI] 19.9 or less, adult; F17.210 Nicotine dependence, cigarettes, uncomplicated; Z20.828 Contact with and (suspected) exposure to other viral communicable diseases; D64.9 Anemia, unspecified; F32.9 Major depressive disorder, single episode, unspecified; G93.9 Disorder of brain, unspecified; J44.9 Chronic obstructive pulmonary disease, unspecified; K59.00 Constipation, unspecified; M19.90 Unspecified osteoarthritis, unspecified site; Z53.20 Procedure and treatment not carried out because of patient's decision for unspecified reasons; Z66 Do not resuscitate; Z80.0 Family history of malignant neoplasm of digestive organs; Z82.49 Family history of ischemic heart disease and other diseases of the circulatory system; Z85.118 Personal history of other malignant neoplasm of bronchus and lung; Z86.73 Personal history of transient ischemic attack (TIA), and cerebral infarction without residual deficits; Z86.74 Personal history of sudden cardiac arrest; Z91.19 Patient's noncompliance with other medical treatment and regimen
CPT/HCPCS: 36415; 70450; 71045; 71250; 74176; 80048; 80053; 81001; 82550; 82948; 83615; 83690; 83735; 84145; 84484; 85025; 85610; 85651; 85730; 86140; 87426; 92610; 93005; 93970; G0378; J0696; J1100; J1170; J1650; J1885; J2250; J2270; J2405; J2704; J2765; J3010; J3490; J7030; U0003